=== PATIENT | female | born 1975 | race Caucasian/White ===

== ENCOUNTER → 2017-01-05 | Outpatient (CLI) | payer OTHER ==
[~2017-01-05] MED LIST: BIRTH CONTROL PO; METFORMIN HCL500 MG PO; VENTOLIN HFA18 GM IH; ZITHROMAX Z-PA250 MG PO
== END | disposition home or self-care (01) ==
LOC: NUC 09:23
DX: R14.3 Flatulence (principal); K21.9 Gastro-esophageal reflux disease without esophagitis; R10.13 Epigastric pain
CPT/HCPCS: 78227; A9537